=== PATIENT | female | born 1995 | race Caucasian/White ===

== ENCOUNTER 2017-04-10 12:34 | Emergency (ER) | payer MEDICAID, OTHER ==
[~2017-04-10] VITALS: Wt 74.5 kg
[2017-04-10] MEDS ORDERED: BEN25 PO (14:09)
[2017-04-10] MEDS ORDERED: HC30CR25 TOP (14:09)
[2017-04-10] MEDS ORDERED: PRED20TA PO (14:09)
[2017-04-10] MEDS ORDERED: CETI10CA PO (14:09)
--- NOTE | 2017-04-10 14:11 | ERA ---
ER Documentation Chief Complaint Date/Time DATE: 04/10/17 TIME: 14:10 Chief Complaint SWELLING ON LIPS X2 WEEKS HPI Patient is a 22-year-old female with no past medical history who presents to the ED with swelling to her lips 2 weeks. She states that she used a new lip GLOSS and developed the symptoms soon afterwards. She states that her lips are burning and slightly itchy and painful.She states that has gotten worse in the last week. She denies tongue swelling. She denies shortness of breath or difficulty speaking or swallowing. She denies abdominal pain, nausea, vomiting or diarrhea. She denies headache or dizziness. Denies fever chills. Denies recent illness. She states that her primary care provider prescribed her with acyclovir last week and she finished a course of it however she states that it did not help with her symptoms. She has no other complaints. ROS All systems reviewed and are negative except as per history of present illness. Medications Home Meds Active Scripts Hydrocortisone* Topical (Hydrocortisone* Topical) 2.5%-28.3 Gm Cream..g., 1 APPLIC TOP BID, #1 TUB Prov:STANLEY HADLEY PA-C 04/10/17 Cetirizine Hcl* (Zyrtec*) 10 Mg Capsule, 10 MG PO DAILY, #10 TAB.CHEW Prov:STANLEY HADLEY PA-C 04/10/17 Diphenhydramine Hcl* (Benadryl*) 25 Mg Cap, 25 MG PO Q6, #30 CAP Prov:STANLEY HADLEY PA-C 04/10/17 Prednisone* (Prednisone*) 20 Mg Tab, 40 MG PO DAILY for 4 Days, TAB Prov:STANLEY HADLEY PA-C 04/10/17 Allergies Allergies: Coded Allergies: No Known Allergy (Unverified , 04/04/12) PMhx/Soc History of Surgery: Yes (APPENDECTOMY) Anesthesia Reaction: No Hx Neurological Disorder: No Hx Respiratory Disorders: No Hx Cardiac Disorders: No Hx Psychiatric Problems: No Hx Miscellaneous Medical Probl: No Hx Alcohol Use: No Hx Substance Use: No Hx Tobacco Use: No Physical Exam Vitals Vital Signs Date Time Temp Pulse Resp B/P Pulse Ox O2 Delivery O2 Flow Rate FiO2 04/10/17 12:38 98.0 122 18 143/87 99 Physical Exam GENERAL: Well-developed, well-nourished female. Appears in no acute distress. HEAD: Normocephalic, atraumatic. EYES: Pupils are equally reactive bilaterally. EOMs grossly intact. No conjunctival erythema. ENT: Moist mucous membranes. No uvula deviation. No kissing tonsils. No exudates. Upper and lower lips are swollen and red, dry. Perioral dermatitis. NECK: Supple. No lymphadenopathy or thyromegaly. No meningismus. negative kernig. negative brudinski. LUNG: Clear to auscultation bilaterally. No rhonchi, wheezing, rales or coarse breath sounds. HEART: Regular rate and rhythm. No murmurs, rubs or gallops. Extremities: Equal pulses bilaterally. No peripheral clubbing, cyanosis or edema. No unilateral leg swelling. NEUROLOGIC: Alert and oriented. Moving all four extremities. 5/5 strength in all extremities. Normal speech. Steady gait. SKIN: Normal color. Warm and dry. No rashes or lesions. Capillary refill < 2 seconds Procedures/MDM ER COURSE: I kept the patient and/or family informed of laboratory and diagnostic imaging results throughout the emergency room course. MEDICAL DECISION MAKING: This is a 22-year-old female who presents with lip swelling 2 weeks. Vital signs were reviewed. Patient is afebrile. Patient is not hypoxic. Patient is nontoxic or ill-appearing I consulted my supervising physician Dr. Rosario who came to examine patient at bedside. Patient does not show signs of angioedema or anaphylaxis. Patient is speaking in full sentences and does not show signs of respiratory distress. Patient likely has contact dermatitis. I advised patient to stop all products used on her lips. Low suspicion for necrotizing fasciitis, SJS, toxic epidermal necrolysis, Kawasaki, erythema multiforme, gangrene, scarlet fever, meningococcemia, sepsis, anaphylaxis, sepsis, deep space infection, or foreign body. DISCHARGE: At this time, patient is stable for discharge and outpatient management with no new complaints during the ER course. Patient was sent home with prednisone, Benadryl and hydrocortisone cream. Patient will be discharged home with instructions to recheck for new or worsening symptoms such as fever, nausea, weakness, LOC and to follow up with primary care in the next 1-2 days. Patient was advised to return to the ER for any new or worsening symptoms. Plan was discussed and patient and/or family understands and agrees. Home instructions were given. Departure Diagnosis: Primary Impression: Contact dermatitis Qualified Code: L23.9 - Allergic contact dermatitis, unspecified trigger Condition: Stable Patient Instructions: Contact Dermatitis Additional Instructions: Call your primary care doctor TOMORROW for an appointment during the next 1-2 days.See the doctor sooner or return here if your condition worsens before your appointment time. STANLEY HADLEY PA-C Apr 10, 2017 14:11
== END 2017-04-10 14:25 | disposition home or self-care (01) ==
LOC: FTE 12:34
DX: L23.9 Allergic contact dermatitis, unspecified cause (principal)
CPT/HCPCS: 99283

== ENCOUNTER 2018-07-10 13:17 | Emergency (ER) | END 2018-07-10 16:00 | disposition home or self-care (01) ==

== ENCOUNTER 2019-07-24 00:34 | Inpatient (IN) | payer OTHER ==
[~2019-07-24] VITALS: Ht 157.5 cm; Wt 80.5 kg
[~2019-07-24 00:34] MED LIST: BEN25 PO; CEPH-443 PO; CETI10CA PO; HC30CR25 TOP; IBUP-1542 PO; PRED20TA PO; SILV20CR12 TOP
[2019-07-24] MEDS ORDERED: LACTATED RINGER'S 1,000 ML IV SCH ×2 (00:44→19:00)
[2019-07-24 00:46] VITALS: BP 120/76; PULSE 59; RESP 17; Ht 157.5 cm; Wt 80.5 kg
[2019-07-24] MEDS ORDERED: AMPICILLIN 2 GM/NS (PMX) 100 ML IV ONE (01:00)
[2019-07-24] MEDS ORDERED: OXYTOCIN 30 UNITS/LR 500 ML IV PRN ×2 (01:00→05:00)
[2019-07-24] MEDS ORDERED: BUTORPHANOL 2 MG INJ IV PRN (01:00)
[2019-07-24] MEDS ORDERED: CARBOPROST 250 MCG INJ IM PRN ×2 (01:00→05:00)
[2019-07-24] MEDS ORDERED: LIDOCAINE 1% (MPF) 30 ML INJ INJ PRN (01:00)
[2019-07-24] MEDS ORDERED: OXYTOCIN 30 UNITS/LR 500 ML IV SCH ×2 (01:00)
[2019-07-24] MEDS ORDERED: METHYLERGONOVINE 0.2 MG INJ IM PRN ×2 (01:00→05:00)
[2019-07-24] MEDS ORDERED: MISOPROSTOL 200 MCG TAB PR PRN ×2 (01:00→05:00)
[2019-07-24 04:30] VITALS: BP 128/67; PULSE 69; RESP 20
[2019-07-24] MEDS ORDERED: LANOLIN HPA 1 PKT TOP PRN (05:00)
[2019-07-24] MEDS ORDERED: OXYCODONE/ASPIRIN (4.88/325) TAB PO PRN ×2 (05:00)
[2019-07-24] MEDS ORDERED: AMPICILLIN 1 GM/NS (PMX) 50 ML IV SCH (05:00)
[2019-07-24] MEDS ORDERED: ZOLPIDEM 5 MG TAB PO PRN (05:00)
[2019-07-24] MEDS ORDERED: BENZOCAINE 20% 56 ML SPRAY TOP PRN (05:00)
[2019-07-24] MEDS ORDERED: WITCH HAZEL/GLYCERIN PAD PR PRN (05:00)
[2019-07-24] MEDS ORDERED: CEFAZOLIN 2 GM/50 ML (PMX) 50 ML IVPB SCH (06:00)
[2019-07-24] MEDS: IBUPROFEN 600 MG TAB PO SCH ×3 (06:02→17:55)
[2019-07-24] MEDS: CEFAZOLIN 2 GM/50 ML (PMX) 50 ML IVPB SCH ×3 (06:03→21:35)
[2019-07-24 08:00] VITALS: BP 101/63; PULSE 69; RESP 19
[2019-07-24] MEDS: SENNA/DOCUSATE NA (8.6MG/50MG) TAB PO SCH ×2 (09:29→20:29)
[2019-07-24 11:30] VITALS: BP 118/71; PULSE 63; RESP 16
[2019-07-24 17:00] VITALS: BP 112/75; PULSE 69; RESP 20
[2019-07-24] MEDS ORDERED: LACTATED RINGER'S 500 ML IV PRN (19:00)
[2019-07-24 20:30] VITALS: BP 112/73; PULSE 71; RESP 18
[2019-07-25 00:40] VITALS: BP 113/74; PULSE 72; RESP 18
[2019-07-25] MEDS: IBUPROFEN 600 MG TAB PO SCH ×4 (00:42→17:39)
[2019-07-25 03:34] VITALS: BP 105/60; PULSE 71; RESP 18
[2019-07-25 08:00] VITALS: BP 115/75; PULSE 77; RESP 18
[2019-07-25] MEDS: SENNA/DOCUSATE NA (8.6MG/50MG) TAB PO SCH ×2 (09:50→20:31)
[2019-07-25 15:50] VITALS: BP 115/75; PULSE 77; RESP 19
[2019-07-25 20:00] VITALS: BP 115/75; PULSE 69; RESP 19
[2019-07-26] MEDS: IBUPROFEN 600 MG TAB PO SCH ×3 (00:26→12:08)
[2019-07-26 03:40] VITALS: BP_SYST 102; PULSE 62; RESP 18
[2019-07-26 08:00] VITALS: BP 113/71; PULSE 65; RESP 16
[2019-07-26] MEDS ORDERED: DIPHTH/TET/ACEL PERTUSS (ADULT) 0.5 ML VIAL IM* ONE (09:00)
[2019-07-26] MEDS: SENNA/DOCUSATE NA (8.6MG/50MG) TAB PO SCH (09:00)
[2019-07-26 15:50] VITALS: BP 123/84; PULSE 71; RESP 18
== END 2019-07-26 18:43 | disposition home or self-care (01) | DRG 805 ==
LOC: OBT 00:34 → L-D 00:37 → OBT 00:39 → L-D 00:39 → PP1 04:25
PROVIDERS: ADMIT Obstetrics & Gynecology; ATTEND Obstetrics & Gynecology
PROC: 10D07Z6 Extraction of Products of Conception, Vacuum, Via Natural or Artificial Opening (ICD-10-PCS; principal; 2019-07-24)
PROC: 0W8NXZZ Division of Female Perineum, External Approach (ICD-10-PCS; 2019-07-24)
PROC: 0UQGXZZ Repair Vagina, External Approach (ICD-10-PCS; 2019-07-24)
DX: O62.3 Precipitate labor (principal); O60.13X0 Preterm labor second trimester with preterm delivery third trimester, not applicable or unspecified; Z37.0 Single live birth; O45.93 Premature separation of placenta, unspecified, third trimester; O71.4 Obstetric high vaginal laceration alone; Z3A.36 36 weeks gestation of pregnancy
CPT/HCPCS: 85025; 85610; 85730; 86592; 86762; 86850; 86900; 86901; 87340; 88307; 90715; 99464; G0463; J0690; J2590; J7120